=== PATIENT | male | born 1985 | race Two or more races ===

== ENCOUNTER 2021-10-22 16:05 | Emergency (ER) | payer OTHER ==
[~2021-10-22] VITALS: Ht 177.8 cm; Wt 118.4 kg
[2021-10-22 16:12] VITALS: BP 132/95
[2021-10-22] MEDS ORDERED: TETRACAINE HCL 0.5% OPTH(EYE) SOLN 4ML EACHEYE ONE (16:30)
[2021-10-22] MEDS ORDERED: ARTISOL13 OP (17:21)
[2021-10-22] MEDS ORDERED: CIPR0.3S67 OP (17:21)
[2021-10-22] MEDS ORDERED: PET35OO OP (17:21)
== END 2021-10-22 17:48 ==
LOC: EEVIPCON 16:05 → ER 16:05
DX: S05.02XA Injury of conjunctiva and corneal abrasion without foreign body, left eye, initial encounter (principal); E11.9 Type 2 diabetes mellitus without complications; X58.XXXA Exposure to other specified factors, initial encounter; Y93.89 Activity, other specified; Y92.89 Other specified places as the place of occurrence of the external cause; Y99.8 Other external cause status